=== PATIENT | male | born 1945 | race Caucasian/White ===

== ENCOUNTER → 2018-02-16 08:23 | Outpatient (CLI) | payer MEDICARE, OTHER, SELFPAY ==
[2018-02-16 08:33] LABS: Microscopic, Urine URINE MICROSCOPIC (MICROSCOPIC)
[2018-02-16 08:46] LABS: Appearance,Urine CLEAR (Clear); Bilirubin,Urine Negative (Negative); Blood, Urine Negative (Negative); Color,Urine YELLOW (Yellow); Glucose,Urine (UA) Negative (Negative); Ketones,Urine Negative (Negative); Leukocyte Esterase,Urine Negative (Negative); Nitrate,Urine Negative (Negative); PH,Urine 7.5 (5.0-8.5); Protein,Urine 1+ (Negative); Specific Gravity, Urine 1.015 (1.005-1.030); Urobilinogen,Urine 0.2 EU/dl (0.2)
[2018-02-16 08:54] LABS: Basophils # 0.1 K/mm3 (0-0.2); Eosinophils # 0.2 K/mm3 (0.0-0.4); Eosinophils % 2.9 % (0.1-12.0); Lymphocytes # 2.1 K/mm3 (0.7-4.5); Lymphocytes % 27.3 K/mm3 (10-50); Mean Corpuscular HGB Conc 28.6 g/dL (31.8-35.4); Mean Corpuscular Hemoglobin 19.4 pg (27.0-31.2); Mean Corpuscular Volume 67.8 fl (80-94); Mean Platelet Volume 7.6 fl (7.4-10.4); Monocytes # 0.5 K/mm3 (0.1-1.0); Neutrophils # 4.7 K/mm3 (1.8-7.8); Platelet Count 232 K/mm3 (142-424); Red Cell Distribution Width 18.4 % (11.5-17.5); White Blood Count 7.6 K/mm3 (4.8-10.8)
[2018-02-16 08:56] LABS: Bacteria,Urine Trace /lpf; Squamous Epithelial Cell,Urine Occasional #/hpf (0-5)
[2018-02-16 09:32] LABS: Hematocrit 34.7 % (42.0-52.0); Hemoglobin 9.9 g/dL (14.1-18.0); Red Blood Count 5.13 M/mm3 (4.60-6.20)
[2018-02-16 09:54] LABS: Hemoglobin A1C 8.1 % (0.0-7.0)
[2018-02-16 10:54] LABS: Albumin Level 3.7 gm/dL (3.4-5.0); Blood Urea Nitrogen 23 mg/dL (7-18); Calcium 9.4 mg/dL (8.5-10.1); Carbon Dioxide 25 mmol/L (21.0-32.0); Chloride 105 mmol/L (98-107); Creatinine,Serum 1.32 mg/dL (0.70-1.30); Estimated Glomerular Filt Rate 53 ml/min (>60); GFR (African American) 65 ML/MIN (>60); Glucose 139 mg/dL (74-106); Phosphorous 3.9 mg/dL (2.4-4.9); Sodium 140 mmol/L (136-145); Uric Acid 4.8 mg/dL (2.6-7.2)
[2018-02-16 14:31] LABS: Creatinine,Urine Random 73 mg/dL (20-320); Total Protein,Urine Random 64.4 mg/dL (0.0-11.9)
[2018-02-18 06:21] LABS: Parathyroid Hormone Intact 46 pg/mL (15-65); Vitamin D 25 Hydroxy 31.8 ng/mL (30.0-100.0)
== END ==
PROVIDERS: Visit Provider Internal Medicine Nephrology
DX: E11.9 Type 2 diabetes mellitus without complications (principal); N18.3 Chronic kidney disease, stage 3 (moderate); I10 Essential (primary) hypertension; N27.0 Small kidney, unilateral; Z12.5 Encounter for screening for malignant neoplasm of prostate
CPT/HCPCS: 36415; 80069; 81001; 82570; 82652; 83036; 83970; 84155; 84550; 85025; G0103

== ENCOUNTER → 2019-01-21 09:29 | Outpatient (CLI) | payer MEDICARE, OTHER, SELFPAY ==
--- NOTE | 2019-01-21 09:34 | CT_ITS ---
CT lung screening EXAM: CT LUNG LOW DOSE WO CONTRAST HISTORY: 60 pack year smoking history, asymptomatic for lung cancer ITS.REASON: CURRENT TOBACCO USE ORDERING PHYSICIAN: Trent Buckley MD PATIENT AGE: 74 years COMPARISON: 03/31/2017 TECHNIQUE: The exam was performed on a GE Light Speed [address] scanner using 2.90 mGy CTDI. A low dose helical CT CHEST was performed on a multi-detector scanner. All CT scans at the facility use one or more dose reduction, viz: automated exposure control, ma/kV adjustment per patient size (including targeted exams where dose is matched to indication, i.e. head), or iterative reconstruction technique. The LDCT was performed in a facility that meets the criteria for the screening program. Data regarding this exam was submitted to ACR which is an approved registry. The order for this exam indicates that it came as a result of a lung cancer screening counseling shard decision-making visit that included all the elements required of such a visit including smoking cessation. The radiologist interpreting this exam meets the CMS criteria for the LDCT lung cancer screening program. The exam is reported using the Lung-RADS classification scale and reported to the ACR registry. NOTE: This study was performed for the specific purposes of lung cancer screening and is not an alternative to diagnostic chest CT. RADIATION DOSE: CTDI vol(CT dose Index-volume) = 2.90mG DLP (Dose Length Product) = 110.20 mGcm FINDINGS: A 6 mm fissural nodule in the right minor fissure unchanged. Changes of COPD noted groundglass opacity left lower lobe posterior medially at 5 mm probably unchanged. No new nodules evident. Prior CABG. Extensive coronary artery calcification IMPRESSION: 1. Lung RADS Category: 2, benign 2. Other findings: COPD, coronary artery disease RECOMMENDATIONS: 12 month LDCT follow-up
== END ==
PROVIDERS: PCP Family Medicine; Visit Provider Family Medicine
DX: Z12.2 Encounter for screening for malignant neoplasm of respiratory organs (principal); Z87.891 Personal history of nicotine dependence

== ENCOUNTER → 2019-03-30 11:55 | Outpatient (CLI) | payer MEDICARE, OTHER, SELFPAY ==
--- NOTE | 2019-03-30 11:58 | NM_ITS ---
CARDIOLITE SPECT MYOCARDIAL PERFUSION LEXISCAN, REST AND STRESS: History: Coronary artery disease, bypass surgery, dysrhythmia, hypertension, diabetes, tobacco use, family history and syncope Procedure: Patient received a 0.4 mg of intravenous Lexiscan, resting heart rate was 60 bpm resting blood pressure 143/67, Lexiscan maximum heart rate achieved was 84 bpm which is less than 85% of the maximum predicted heart rate and a blood pressure was 125/56. With Lexiscan patient complained of chest tightness Electrocardiogram: Resting electrocardiogram showed sinus rhythm, with Lexiscan there is [address] segment depression noted from the baseline EKG. The EKG portion of the Lexiscan Myoview is positive for ischemia. Cardiac stress and resting SPECT images: Cardiac stress and resting SPECT images were obtained using technetium 99 Myoview 32.8 mCi stress 10.7 mCi at rest. Gated SPECT further analysis of segmental wall motion and calculation of the ejection fraction also done. Cardiac stress and rest SPECT images show uniform myocardial activity without segmental perfusion abnormality, computer derived ejection fraction is 44% with no regional wall motion abnormality. Right ventricle is moderately enlarged with normal contractility. Conclusion: 1. The EKG portion of the Lexiscan Myoview is positive for ischemia 2. No scintigraphic evidence of reversible ischemia seen, computer derived ejection fraction 44% with no regional wall motion abnormality, right ventricle is moderately enlarged with normal contractility. 3. Abnormal Lexiscan Myoview study due to low ejection fraction of 44%
--- NOTE | 2019-03-30 14:36 | HMH.ITSHM ---
Current Home Medications as stated by this patient Cuong Healy or sales representative door to door. []clopidogrel carvedilol januvia ramipril atorvastatin clonidine amlodipine tamsulosin aspirin
== END ==
PROVIDERS: PCP Family Medicine; Visit Provider Internal Medicine
DX: I25.810 Atherosclerosis of coronary artery bypass graft(s) without angina pectoris (principal); I65.23 Occlusion and stenosis of bilateral carotid arteries; R01.1 Cardiac murmur, unspecified; R09.89 Other specified symptoms and signs involving the circulatory and respiratory systems; R94.31 Abnormal electrocardiogram [ECG] [EKG]; Z95.1 Presence of aortocoronary bypass graft
CPT/HCPCS: 78452; 93017; A9502; J2785

== ENCOUNTER → 2019-04-01 12:35 | Outpatient (CLI) | payer MEDICARE, OTHER, SELFPAY ==
--- NOTE | 2019-04-01 12:36 | CI_ITS ---
Cerebrovascular Exam Indications: Follow-up carotid 433.10. IMPRESSIONS 1. The bilateral vertebral arteries are patent with normal antegrade flow. 2. Study suggests 50-69% stenosis involving the right internal carotid artery and the left internal carotid artery, left upper end of scale. 3. Further testing suggested Labs, prior tests, procedures, and surgery: Right endarterectomy. Labs, prior tests, procedures, and surgery: Right endarterectomy. Carotid duplex study. Complete study and Doppler flow study including spectral analysis, color and bess scale imaging. Height: Height: 172.7cm. Height: 68in. Weight: Weight: 64.4kg. Weight: 141.7lb. Body mass index: BMI: 21.6kg/m^2. Body surface area: BSA: 1.76m^2. Location: Vascular laboratory. Patient status: Outpatient. Tables: Arterial flow: + +--------+--------+ Location V sys V ed + +--------+--------+ Right CCA - proximal 120cm/s 19.6cm/s + +--------+--------+ Right CCA - distal 87.4cm/s 18.2cm/s + +--------+--------+ Right ECA 619cm/s -------- + +--------+--------+ Right ICA - proximal 165cm/s 40.3cm/s + +--------+--------+ Right ICA - mid 165cm/s 35.4cm/s + +--------+--------+ Right ICA - distal 137cm/s 34.2cm/s + +--------+--------+ Right vertebral 93cm/s -------- + +--------+--------+ Left CCA - proximal 156cm/s 25.1cm/s + +--------+--------+ Left CCA - distal 161cm/s 29.9cm/s + +--------+--------+ Left ECA 327cm/s -------- + +--------+--------+ Left ICA - proximal 401cm/s 70.1cm/s + +--------+--------+ Left ICA - mid 132cm/s 28.9cm/s + +--------+--------+ Left ICA - distal 111cm/s 35.2cm/s + +--------+--------+ Left vertebral 60.9cm/s -------- + +--------+--------+ Velocity ratios: + + + + + + Right, V sys Right, V ed Left, V sys Left, V ed + + + + + + Max ICA/dist CCA 1.89 2.21 2.49 2.34 + + + + + + (Report amended ) Electronically signed by: Fran Bennett [id number]
--- NOTE | 2019-04-01 12:36 | CA_ITS ---
CA echo doppler complete PROCEDURE: INDICATIONS FOR THE TEST: Chest pain COPD Heart Murmur+ Tobacco Smoking+ Palpitations Fatigue Syncope Edema Hypertension+Diabetes Mellitus Rheumatic Fever SOB SALCEDO Obesity Hyperlipidemia+ Family History HD Additional History CABG PATIENT INFORMATION HEIGHT: 68 WEIGHT:142 GENDER: Male B/P:150/56 2-D/M-MODE INTERPRETATION: 2-D MEASUREMENTS OBSERVED VALUES IN CMS Right Ventricular Dimension (RVDd) 2.7 Interventricular Septum (Thickness)(IVsd) 1.6 Left Ventricular Internal Dimensions(LVIDd) 5.3 Left Ventricular Posterior Wall (Thickness)(LVPWd) 1.2 Aortic Root 3.4 Aortic Cusp Separation 1.1 Left Atrial Dimensions (LAD) 4.7 2D 1. Technically difficult study because of the patient's factor and poor acoustic windows 2. Left atrium is moderately enlarged, left ventricle is normal size, mild concentric left ventricular hypertrophy, visually estimated ejection fraction 55% with no regional wall motion abnormality. 3. The right atrium and right ventricle are mildly enlarged with normal contractility. 4. The aortic valve is thickened and calcified with severe restriction the leaflet mobility, morphologically there appears to be severe aortic stenosis. 5. The mitral valve has mitral annular calcification, leaflets are minimally thickened. 6. The tricuspid valve is grossly normal. 7. The pulmonic valve is thickened and calcified. 8. No significant pericardial effusion noted. DOPPLER INTERROGATION: 1. The maximum aortic out flow velocity recorded study is 2.7 m/s, resulting in a mean gradient across valve of 15 mmHg, this represents mild aortic stenosis, there is no aortic insufficiency. 2. The mitral inflow velocity within normal range, there is no mitral stenosis, there is mild mitral regurgitation, grade 1 diastolic dysfunction seen with tissue Doppler evidence of raised left atrial pressure. 3. The pulmonic velocity is mildly increased there is no significant pulmonic stenosis, there is mild pulmonic insufficiency. 4. Mild tricuspid regurgitation, tricuspid regurgitation jet velocity is inadequate for calculation of the right ventricular systolic pressure. CONCLUSION: 1. Moderately enlarged left atrium, normal left ventricular size, mild concentric left ventricular hypertrophy, visually estimated ejection fraction 55% with no regional wall motion abnormality, grade 1 diastolic dysfunction seen with tissue Doppler evidence of raised left atrial pressure. 2. Mildly enlarged right ventricle with normal contractility. 3. Thickened and calcified ao
== END ==
PROVIDERS: PCP Family Medicine; Visit Provider Internal Medicine
DX: I25.810 Atherosclerosis of coronary artery bypass graft(s) without angina pectoris (principal); I65.23 Occlusion and stenosis of bilateral carotid arteries; R09.89 Other specified symptoms and signs involving the circulatory and respiratory systems
CPT/HCPCS: 93306; 93880

== ENCOUNTER → 2019-09-05 10:00 | Outpatient (CLI) | payer MEDICARE, OTHER, SELFPAY ==
[2019-09-05 10:44] LABS: Basophils # 0.1 K/mm3 (0-0.2); Basophils % 1.2 % (0.1-2.0); Eosinophils # 0.2 K/mm3 (0.0-0.4); Hemoglobin 12.8 g/dL (14.1-18.0); Lymphocytes % 27.6 % (10-50); Mean Corpuscular HGB Conc 29.1 g/dL (31.8-35.4); Mean Corpuscular Hemoglobin 24.7 pg (27.0-31.2); Mean Corpuscular Volume 84.9 fl (80-94); Monocytes # 0.4 K/mm3 (0.1-1.0); Monocytes % 4.8 % (1.7-9.3); Neutrophils # 4.7 K/mm3 (1.8-7.8); Neutrophils % 64.4 % (37.0-80.0); Platelet Count 196 K/mm3 (142-424); Red Blood Count 5.18 M/mm3 (4.60-6.20); White Blood Count 7.4 K/mm3 (4.8-10.8)
[2019-09-05 10:47] LABS: Red Cell Distribution Width 25.8 % (11.5-17.5)
[2019-09-05 11:34] LABS: Anion Gap 11.4 mEq/L (5-15); Blood Urea Nitrogen 24 mg/dL (7-18); Calcium 8.8 mg/dL (8.5-10.1); Carbon Dioxide 27 mmol/L (21.0-32.0); Chloride 104 mmol/L (98-107); Creatinine,Serum 1.54 mg/dL (0.70-1.30); Estimated Glomerular Filt Rate 45 ml/min (>60); GFR (African American) 54 ML/MIN (>60); Glucose 218 mg/dL (74-106); Potassium 5.4 mmoL/L (3.5-5.1); Sodium 137 mmol/L (136-145)
== END ==
PROVIDERS: Visit Provider Surgery
DX: D64.9 Anemia, unspecified (principal); F17.200 Nicotine dependence, unspecified, uncomplicated
CPT/HCPCS: 36415; 80048; 85025

== ENCOUNTER → 2020-02-01 10:08 | Outpatient (CLI) | payer MEDICARE, OTHER, SELFPAY ==
--- NOTE | 2020-02-01 10:11 | CT_ITS ---
PROCEDURE: CT LUNG SCREENING CLINICAL INDICATION: CURRENT TOBACCO USE One hundred pack-year smoking history asymptomatic for lung cancer COMPARISON: LUNGSCREEN CT lung screening from 01/21/2019 TECHNIQUE: The exam was performed on a GE Light Speed [address] scanner using 2.90 mGy CTDI. A low dose helical CT CHEST was performed on a multi-detector scanner. All CT scans at the facility use one or more dose reduction, viz: automated exposure control, ma/kV adjustment per patient size (including targeted exams where dose is matched to indication, i.e. head), or iterative reconstruction technique. The LDCT was performed in a facility that meets the criteria for the screening program. Data regarding this exam was submitted to ACR which is an approved registry. The order for this exam indicates that it came as a result of a lung cancer screening counseling shard decision-making visit that included all the elements required of such a visit including smoking cessation. The radiologist interpreting this exam meets the CMS criteria for the LDCT lung cancer screening program. The exam is reported using the Lung-RADS classification scale and reported to the ACR registry. NOTE: This study was performed for the specific purposes of lung cancer screening and is not an alternative to diagnostic chest CT. RADIATION DOSE: CTDI vol(CT dose Index-volume) = 2.90mG DLP (Dose Length Product) = 106.29 mGcm Lung Rads Category: FINDINGS: Prior CABG. Extensive coronary artery calcification. There are scattered small nodes in the mediastinum not significantly changed. Mild cardiomegaly. Changes of COPD. No suspicious nodules evident. No change right middle lobe fissural nodule OTHER FINDINGS: No other pertinent findings evident. IMPRESSION: Lung rads category 1, negative Recommend continued annual screening LD CT Dictated by: Addi Stauffer MD 02/05/2020 10:13 Electronically signed by Addi Stauffer MD in [place] 02/05/2020 10:13
== END ==
PROVIDERS: PCP Family Medicine; Visit Provider Family Medicine
DX: Z87.891 Personal history of nicotine dependence (principal); Z12.2 Encounter for screening for malignant neoplasm of respiratory organs

== ENCOUNTER → 2021-04-29 14:10 | Outpatient (CLI) | payer MEDICARE, OTHER, SELFPAY ==
--- NOTE | 2021-04-29 14:12 | CA_ITS ---
APPROVED REPORT EXAM: Comprehensive 2D, Doppler, and color-flow Echocardiogram Cnc Supervisor: SHARDA Borden, RVS Ht: 5 ft 7 in Wt: 137lbs BSA: 1.72 BP: 127/53 mmHg Indications: Aortic stenosis, Pre-op clearance skin CA, CAD, ABN EKG, HTN, HLD, DM, smoker 2D Dimensions IVSd 1.26 cm M: 0.6-1.2 LVEF (Visual) 59.20 % PWd 1.09 cm M: 0.6 - 1.2 LA Volume 92.70 mL LVDd 4.51 cm M: 4.2 - 5.9 LA Volume Index 53.89 mL/m2 (M/F) 16-34 LVDs 3.10 cm M: 2.5 - 4.0 Aortic Root 3.11 cm M: 3.1 - 3.7 Left Atrium 4.73 cm M: 3.0 - 4.0 LVOT 1.84 cm (M/F) 1.5-2.5 M-Mode Dimensions RVDd 2.33 cm (0.9-2.6) LA Diam 3.87 cm (1.9-4.0) LVDd 5.57 cm (3.5-5.7) Ao Diam 3.51 cm (2.0-3.7) LVDs 3.47 cm (3.5-5.7) IVSd 0.96 cm (0.6-1.1) PWd 1.14 cm (0.6-1.1) EF (Teich) 67.20% EPSs 0.52 cm FS 37.70% EDV (Teich) 151.80 mL TAPSE 1.91 (<1.7) ESV (Teich) 49.80 mL LV Diastology E Decel Time 240.00 (160-240 msec) E/A Ratio 1.21 MED E' 6.40 (< 7 cm/sec) MED A' 11.80 cm/s E'/MED E' Ratio 12.95 (>14) LAT E' 9.40 (<10 cm/sec) LAT A' 10.90 cm/s E/LAT E' Ratio 8.82 (>14) Aortic Valve LVOT Max 89.00 (70-110 cm/s) LVOT VTI 24.52 cm AoV Peak Maicol. 359.00 (50-130 cm/s) AI PHT 468.00 ms AO Peak GR. 51.80 mmHg AO Mean GR. 30.40 (<5 mmHg) AO VTI 93.04 (18-25 cm) ERO 0.82 cm2 PATRICIA (VTI) 0.70 (2.5-4.5 cm2) Mitral Valve MV A Velocity 69.00 (40-130 cm/s) E/A Ratio 1.21 MV Decel. Time 240.00 (160-240 ms) Pulmonary Valve PV Peak Velocity 106.00 (50-150 cm/s) Tricuspid Valve TR P. Velocity 147.00 cm/s RAP Estimate 10.00 mmHg RVSP 18.60 mmHg Left Ventricle Left atrium is mildly enlarged, left ventricle is normal size, mild concentric left ventricular hypertrophy, visually estimated ejection fraction 55% with no regional wall motion abnormality. Diastolic parameters are inconclusive. Right Ventricle Right atrium and right ventricle are normal size and contractility. Aortic Valve Aortic valve is thickened and calcified with severe restriction in the leaflet mobility, mean gradient across valve is 31 mmHg, valve area is 0.7 cm??? represents severe aortic stenosis, there is mild aortic insufficiency. Mitral Valve Mitral valve leaflets are minimally thickened, there is no mitral stenosis, there is mild mitral regurgitation. Tricuspid Valve Tricuspid valve is grossly normal, there is mild tricuspid regurgitation, tricuspid regurgitation jet velocity is inadequate for calculation of the right ventricular systolic pressure. Pulmonic Valve Pulmonic valve is poorly visualized. Great Vessels Aortic root is normal size. Pericardium No significant pericardial effusion noted. Conclusion 1. Mildly enlarged left atrium, normal left ventricular size, mild concentric left ventricular hypertrophy, visually estimated ejection fraction 55% with no regional wall motion abnormality, diastolic parameters are inconclusive in 2. Thickened and calcified aortic valve with mean gradient across valve of 31 mmHg, valve area is 0.7 cm, represents severe aortic stenosis, there is mild aortic insufficiency. 3. Mild mitral and tricuspid regurgitation. 4. No significant pericardial effusion noted. Electronically signed by : Joseph Isaac, 04/29/2021 22:13:21
--- NOTE | 2021-04-29 14:12 | CA_ITS ---
APPROVED REPORT [employer]: THOMAS Laterality: Bilateral Study Quality: Good Indications: KEILA, Surgical Clearance Risk Factors Hypertension: Hyperlipidemia Diabetes CAD, Smoking Hx of right endarterectomy 20+ years ago Doppler Spectral Velocity Analysis ECA (R) 285.10/11.60 cm/s ECA (L) 220.60/0.00 cm/s dICA (R) 171.70/27.00 cm/s dICA (L) 106.20/25.70 cm/s Augustus (R) 164.60/27.00 cm/s Augustus (L) 104.50/20.60 cm/s pICA (R) 190.50/34.10 cm/s pICA (L) 412.50/71.70 cm/s dCCA (R) 74.50/13.50 cm/s dCCA (L) 120.80/12.80 cm/s pCCA (R) 120.80/13.90 cm/s pCCA (L) 169.90/16.70 cm/s Vert (R) 132.90/16.50 cm/s Vert (L) 96.50/14.20 cm/s ICA/CCA 2.56 ICA/CCA 3.41 Findings Duplex evaluation demonstrates stenosis of the right proximal internal carotid artery in the range of 50-69%. Duplex evaluation demonstrates stenosis of the left proximal internal carotid artery in the range of 50-69%, upper end of scale. Duplex evaluation demonstrates antegrade flow of the bilateral vertebral arteries. Conclusion Duplex evaluation demonstrates stenosis of the right proximal internal carotid artery in the range of 50-69%. Duplex evaluation demonstrates stenosis of the left proximal internal carotid artery in the range of 50-69%, upper end of scale. Duplex evaluation demonstrates antegrade flow of the bilateral vertebral arteries. Electronically signed by : Estephanie Andrade, 04/29/2021 16:52:25
== END ==
PROVIDERS: PCP Family Medicine; Visit Provider Nurse Practitioner Family
DX: I35.0 Nonrheumatic aortic (valve) stenosis (principal); E11.9 Type 2 diabetes mellitus without complications; E78.2 Mixed hyperlipidemia; F17.200 Nicotine dependence, unspecified, uncomplicated; I10 Essential (primary) hypertension; I25.10 Atherosclerotic heart disease of native coronary artery without angina pectoris; I65.23 Occlusion and stenosis of bilateral carotid arteries; R01.1 Cardiac murmur, unspecified; R09.89 Other specified symptoms and signs involving the circulatory and respiratory systems; R94.31 Abnormal electrocardiogram [ECG] [EKG]; Z01.818 Encounter for other preprocedural examination; Z95.1 Presence of aortocoronary bypass graft; Z79.84 Long term (current) use of oral hypoglycemic drugs
CPT/HCPCS: 93306; 93880

== ENCOUNTER → 2021-05-14 11:30 | Outpatient (CLI) | payer MEDICARE, OTHER, SELFPAY ==
[2021-05-14 12:28] LABS: Basophils # 0.2 K/mm3 (0-0.2); Basophils % 2.6 % (0.1-2.0); Eosinophils # 0.2 K/mm3 (0.0-0.4); Eosinophils % 2.9 % (0.1-12.0); Hematocrit 39.1 % (42.0-52.0); Hemoglobin 12.1 g/dL (14.1-18.0); Lymphocytes % 25.3 % (10-50); Mean Corpuscular Hemoglobin 25.7 pg (27.0-31.2); Mean Corpuscular Volume 82.7 fl (80-94); Mean Platelet Volume 13.8 fl (7.4-10.4); Monocytes # 0.4 K/mm3 (0.1-1.0); Monocytes % 4.9 % (1.7-9.3); Neutrophils % 64.3 % (37.0-80.0); Platelet Count 182 K/mm3 (142-424); Red Blood Count 4.72 M/mm3 (4.60-6.20); Red Cell Distribution Width 19.1 % (11.5-17.5); White Blood Count 7.8 K/mm3 (4.8-10.8)
[2021-05-14 13:20] LABS: Chloride 104 mmol/L (98-107); Sodium 139 mmol/L (136-145)
[2021-05-14 13:21] LABS: Potassium 5.5 mmoL/L (3.5-5.1)
[2021-05-14 13:24] LABS: Anion Gap 16.5 mEq/L (5-15); Blood Urea Nitrogen 33 mg/dl (9-20); Calcium 8.9 mg/dl (8.4-10.2); Carbon Dioxide 24 mmol/L (22.0-30.0); Estimated Glomerular Filt Rate 49 ml/min (>60); GFR (African American) 60 ML/MIN (>60); Glucose 254 mg/dl (74-100)
== END ==
PROVIDERS: Visit Provider Otolaryngology
DX: Z01.812 Encounter for preprocedural laboratory examination (principal); Z20.822 Contact with and (suspected) exposure to COVID-19
CPT/HCPCS: 36415; 80048; 85025; U0003

== ENCOUNTER 2021-05-16 05:52 | Day surgery (SDC) | payer MEDICARE, OTHER, SELFPAY ==
[2021-05-13 17:03] VITALS: BMI 21.2
[2021-05-16 06:22] VITALS: BP 167/56; PULSE 57; RESP 18; TEMP 36.6; O2SAT 99
[2021-05-16 06:47] LABS: POC Glucose,Bedside 156 (70-110)
--- NOTE | 2021-05-16 06:59 | P.PN_ITS ---
[facility] Anesthesia Checklist - Patient Identification Patient Identification: Arm Band - Structural Data Admitted From: Home Planned Operative Procedure/s: Excision neoplasm Consent for Planned Operative Procedure(s) Verified: Yes - NPO Status Verified Time NPO: 00:00 - Additional verifications Anesthesia Reactions: No Hx Blood Transfusions: No Blood Transfusion Reaction: No - Airway Assessment C-Spine Mobility Assessed: Yes TMJ Mobility Assessed: Yes Dentition: Edentulous - Neurological Assessment Level of Consciousness: Awake Hx Seizures: No Numbness or tingling in extremities: Yes - Anesthesia Plan Anesthesia Risk discussed: Yes Anesthesia Plan: Verified ASA Class: IV Anesthesia Type: Local & MAC [facility] History I have reviewed the patient's past medical history: Yes Medical History: Reports:: Congestive Heart Failure, Congenital Heart Disease, Diabetes Mellitus Type 2, Hyperlipidemia, Hypertension, Myocardial Infarction, Renal Disease, Renal Insufficiency, Valvular Heart Disease Denies:: Cancer, Diabetes Mellitus Type 1, Internal Pacemaker, MRSA, Seizures *Have you ever received a pneumonia vaccine?: No *Have you received a flu vaccine this season?: Yes Other Medical History: Denies: Blood Transfusion Reaction Anesthesia experience/problems:: None Other Surgeries: Yes: Cancer Surgery, Cardiac Catheterization, Cholecystectomy, Colonoscopy, Open Heart Surgery, Other. No: Pacemaker Amputation: No Fractures: No - *Social History Last grade of school completed: 9th or 10th Smoking Status: Current every day smoker Tobacco Type: cigarettes # Packs/Day (cigarettes): 1 Alcohol Intake: former Substance Use Type: denies use *Occupational Status:: retired Housing: house Household Members: spouse *Travel in the last 8 weeks: None Family Hx:: No significant family history
--- NOTE | 2021-05-16 08:27 | P.OP_ITS ---
Date of procedure: 05/16/21 Pre-op Diagnosis:: 1. 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 Neoplasm left lower leg 1.8 cm Post-op Diagnosis:: same Procedure performed:: 1. Excision of neoplasm nose 3.8 cm with tissue rearrangement Z-plasty repair 2. Excision of neoplasm left lower leg 1.8 cm with tissue rearrangement Z- plasty repair Surgeon:: Jovani Gonzalez MD WASH OIL PUMP OPERATOR:: Percy Ortiz Anesthesia: MAC Estimated blood loss (mL): 8 Operative findings:: same Operative note:: The patient had a MAC anesthetic the eyes were protected with Steri-Strips and the face was prepped with chlorhexidine. The lesion on the nose measured 3.8 cm, 2 cc of 2% lidocaine with epi were injected into the perilesional area the lesion was marked out and the sebas out was incised and the lesion was excised. Bleeding was stopped with bipolar cautery. Lateral and superior incisions were made and a tissue rearrangement Z-plasty repair was done with interrupted 2-0 nylon sutures Surgicel snow was placed in the defect before the closure the Dermabond dressing was applied. On his left lower leg measured 1.8cm then 1.5 cc of 2% lidocaine with epi were injected into the perilesional area after prepping and draping. The lesion was marked out and the sebas out was incised and the lesion was excised and submitted. Superior and inferior incisions were made and a tissue rearrangement geometric plastic repair was done with 2-0 nylon sutures,a Dermabond dressing was applied as well as a Band-Aid dressing and the patient was sent to recovery in good general condition. Condition: stable Disposition: PACU Complications:: none
[2021-05-16 08:30] VITALS: BP 143/59; PULSE 60; RESP 16; TEMP 36.2; O2SAT 99
[2021-05-16 08:45] VITALS: BP 122/52; PULSE 55; RESP 16; O2SAT 98
--- NOTE | 2021-05-16 08:49 | US_ITS ---
PROCEDURE: US ABD. AORTA SCREENING CLINICAL INDICATION: abdominal bruit COMPARISON: CT ABDPELW CT ABD PELVIS W/ CONTRAST from 06/11/2016 FINDINGS: The abdominal aorta has normal caliber as do the proximal common iliacs. Measurements of the abdominal aorta are less than 2 cm. There is atherosclerotic plaque noted IMPRESSION: No evidence of aortic aneurysm. Dictated by: Addi Stauffer MD 05/16/2021 09:33 Addi Stauffer MD in [place] 05/16/2021 09:33
[2021-05-16 09:00] VITALS: BP 129/95; PULSE 59; RESP 16; O2SAT 98
--- NOTE | 2021-05-16 09:03 | SUR.PHASEII ---
[id number] ABD sound reported to cardiology ( Kimberli PARISH) order for u/s ABD aorta protocol, Rad. to call report. L.King SERVIN
[2021-05-16 09:30] VITALS: BP 134/82; PULSE 58; RESP 16; O2SAT 98
[2021-05-16 10:41] LABS: POC Glucose,Bedside 144 (70-110)
== END 2021-05-16 09:30 | disposition home or self-care (01) ==
LOC: OR 05:54
PROVIDERS: PCP Family Medicine; Visit Provider Otolaryngology
DX: B07.9 Viral wart, unspecified (principal); C44.311 Basal cell carcinoma of skin of nose; E11.9 Type 2 diabetes mellitus without complications; E78.5 Hyperlipidemia, unspecified; I11.0 Hypertensive heart disease with heart failure; I25.2 Old myocardial infarction; N28.9 Disorder of kidney and ureter, unspecified; I50.9 Heart failure, unspecified; Z90.49 Acquired absence of other specified parts of digestive tract; Z72.0 Tobacco use; Z79.82 Long term (current) use of aspirin; Z79.899 Other long term (current) drug therapy
CPT/HCPCS: 14020; 14060; 76705; 82962; 88305; 96374

== ENCOUNTER → 2021-08-14 07:34 | Outpatient (CLI) | payer MEDICARE, OTHER, SELFPAY ==
[2021-08-14 07:48] LABS: Coronavirus 19, PCR Not Detected (NotDetected); Influenza A, PCR Not Detected (NotDetected); Influenza B, PCR Not Detected (NotDetected)
[2021-08-14 09:07] LABS: Basophils # 0.1 K/mm3 (0-0.2); Basophils % 1.2 % (0.1-2.0); Eosinophils # 0.3 K/mm3 (0.0-0.4); Eosinophils % 2.9 % (0.1-12.0); Hematocrit 37.1 % (42.0-52.0); Lymphocytes % 20.3 % (10-50); Mean Corpuscular HGB Conc 29.8 g/dL (31.8-35.4); Mean Corpuscular Volume 83.8 fl (80-94); Mean Platelet Volume 7.8 fl (7.4-10.4); Monocytes # 0.6 K/mm3 (0.1-1.0); Monocytes % 5.9 % (1.7-9.3); Neutrophils # 6.7 K/mm3 (1.8-7.8); Neutrophils % 69.7 % (37.0-80.0); Platelet Count 190 K/mm3 (142-424); Red Blood Count 4.42 M/mm3 (4.60-6.20); Red Cell Distribution Width 15.1 % (11.5-17.5); White Blood Count 9.6 K/mm3 (4.8-10.8)
[2021-08-14 10:15] LABS: Chloride 104 mmol/L (98-107); Potassium 5.1 mmoL/L (3.5-5.1); Sodium 137 mmol/L (136-145)
[2021-08-14 10:18] LABS: Anion Gap 14.1 mEq/L (5-15); Blood Urea Nitrogen 26 mg/dl (9-20); Calcium 9.1 mg/dl (8.4-10.2); Carbon Dioxide 24 mmol/L (22.0-30.0); Estimated Glomerular Filt Rate 59 ml/min (>60); GFR (African American) 71 ML/MIN (>60); Glucose 179 mg/dl (74-100)
== END ==
PROVIDERS: Visit Provider Otolaryngology
DX: Z01.812 Encounter for preprocedural laboratory examination (principal); Z11.52 Encounter for screening for COVID-19; C44.311 Basal cell carcinoma of skin of nose
CPT/HCPCS: 36415; 80048; 85025; C9803; U0003; U0005

== ENCOUNTER 2021-08-15 07:57 | Day surgery (SDC) | payer MEDICARE, OTHER, SELFPAY ==
[2021-08-15 08:11] VITALS: BMI 20.5
--- NOTE | 2021-08-15 08:15 | ECG_ITS ---
APPROVED REPORT Exam: Resting ECG HR:57 bpm ECG Measurements Heart Rate 57 AXES VA 178 P 4 QRSd 100 QRS -34 QT 398 T -5 QTc 387 Conclusion Sinus bradycardia Left axis deviation Poor r wave progression - unchanged from prior Abnormal ECG Electronically signed by : Tirso Ny MD 08/16/2021 22:39:41
[2021-08-15 08:20] VITALS: BP 140/57; PULSE 56; RESP 18; TEMP 36.6; O2SAT 99
--- NOTE | 2021-08-15 08:55 | HMH.ANESCL ---
[facility] Anesthesia Checklist - Patient Identification Patient Identification: Arm Band - Structural Data Admitted From: Home Planned Operative Procedure/s: excision nose lesion Consent for Planned Operative Procedure(s) Verified: Yes Verified Documents: Surgical Consent, History and Physical - NPO Status Verified Time NPO: 00:00 - Additional verifications Anesthesia Reactions: No Hx Blood Transfusions: No Blood Transfusion Reaction: No - Airway Assessment C-Spine Mobility Assessed: Yes (mp2) TMJ Mobility Assessed: Yes Dentition: Good Dentition - Neurological Assessment Level of Consciousness: Awake, Alert - Anesthesia Plan Anesthesia Risk discussed: Yes Anesthesia Plan: Verified ASA Class: III Anesthesia Type: MAC [facility] History I have reviewed the patient's past medical history: Yes Medical History: Reports:: Congestive Heart Failure, Congenital Heart Disease, Diabetes Mellitus Type 2, Hyperlipidemia, Hypertension, Myocardial Infarction, Renal Disease, Renal Insufficiency, Valvular Heart Disease Denies:: Cancer, Diabetes Mellitus Type 1, Internal Pacemaker, MRSA, Seizures *Have you ever received a pneumonia vaccine?: Yes *Have you received a flu vaccine this season?: Yes Other Medical History: Denies: Blood Transfusion Reaction Anesthesia experience/problems:: nac Other Surgeries: Yes: Cancer Surgery (skin ca removed on nose), Cardiac Catheterization, Cardiac Surgery, Cholecystectomy, Colonoscopy, Open Heart Surgery, Other. No: Pacemaker Amputation: No Fractures: No - *Social History Last grade of school completed: 7th or 8th Smoking Status: Current every day smoker Tobacco Type: cigarettes # Packs/Day (cigarettes): 1 Alcohol Intake: former Substance Use Type: marijuana *Occupational Status:: retired Housing: house Household Members: spouse *Travel in the last 8 weeks: None Family Hx:: Cancer
[2021-08-15 09:20] VITALS: BP 122/50; PULSE 56; RESP 18; TEMP 36.2; O2SAT 98
[2021-08-15 09:35] VITALS: BP 99/55; PULSE 60; RESP 18; O2SAT 97
[2021-08-15 09:47] VITALS: BP 114/55; PULSE 58; RESP 18; O2SAT 97
--- NOTE | 2021-08-15 09:57 | HMH.OPNOTE ---
Date of procedure: 08/15/21 Pre-op Diagnosis:: 1. 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 Excision of depressed scar with tissue rearrangement repair Surgeon:: Jovani Gonzalez MD MEDICAL PHYSIOLOGIST:: Percy Ortiz Anesthesia: MAC Estimated blood loss (mL): 5 Operative findings:: same Operative note:: The face was prepped and draped, the eyes were protected with Steri-Strips. The perilesional area on the nasal dorsum was infiltrated with 3 cc of 2% lidocaine containing epinephrine. The depressed scarred area was marked out the marked out, it measured 3 cm, the markup was incised and the depressed scar was excised to the level of the lower lateral cartilages. Bleeding was 5 cc and stopped with suction cautery and a tissue rearrangement was done after anterior and inferior incisions were made and a Z-plasty repair was done with 2-0 chromic on the subcutaneous layer and 2-0 nylon on the cutaneous layer. A Dermabond dressing was applied and the patient was sent to recovery in good general condition. Condition: stable Disposition: PACU Complications:: none
[2022-07-10 10:54] LABS: POC Glucose,Bedside 179 (70-110)
== END 2021-08-15 09:50 | disposition home or self-care (01) ==
LOC: OR 07:59
PROVIDERS: PCP Family Medicine; Visit Provider Otolaryngology
DX: C44.311 Basal cell carcinoma of skin of nose (principal); I50.9 Heart failure, unspecified; E11.9 Type 2 diabetes mellitus without complications; E78.5 Hyperlipidemia, unspecified; I10 Essential (primary) hypertension; I25.2 Old myocardial infarction; N28.9 Disorder of kidney and ureter, unspecified; Z85.828 Personal history of other malignant neoplasm of skin; Z90.49 Acquired absence of other specified parts of digestive tract; Z72.0 Tobacco use; Z80.9 Family history of malignant neoplasm, unspecified; F12.90 Cannabis use, unspecified, uncomplicated
CPT/HCPCS: 14060; 82962; 88305; 93005; 96374

== ENCOUNTER → 2021-08-19 07:56 | Outpatient (CLI) | payer MEDICARE, OTHER, SELFPAY | PROVIDERS: Visit Provider Ophthalmology | DX: Z01.812 Encounter for preprocedural laboratory examination (principal); Z11.52 Encounter for screening for COVID-19 | CPT/HCPCS: C9803; U0003; U0005 ==

== ENCOUNTER 2021-08-20 08:16 | Day surgery (SDC) | payer MEDICARE, OTHER, SELFPAY ==
[2021-08-16 11:49] VITALS: BMI 20.5
[2021-08-20 08:34] VITALS: BP 123/62; PULSE 63; RESP 18; TEMP 36.4; O2SAT 99
[2021-08-20 08:53] LABS: POC Glucose,Bedside 204 (70-110)
[2021-08-20 09:28] VITALS: BP 142/60; PULSE 64; RESP 18; TEMP 36.3; O2SAT 98
[2021-08-20 09:32] VITALS: BP 142/60; PULSE 64; RESP 18; TEMP 36.3; O2SAT 98
== END 2021-08-20 09:32 | disposition home or self-care (01) ==
LOC: OUTP 08:17
PROVIDERS: PCP Family Medicine; Visit Provider Ophthalmology
PROC: (CPT 66821; principal; 2021-08-20 09:30)
DX: H26.491 Other secondary cataract, right eye (principal); Z96.1 Presence of intraocular lens; I25.10 Atherosclerotic heart disease of native coronary artery without angina pectoris; E11.9 Type 2 diabetes mellitus without complications; E78.5 Hyperlipidemia, unspecified; Z95.1 Presence of aortocoronary bypass graft; I10 Essential (primary) hypertension; Z79.82 Long term (current) use of aspirin; Z79.899 Other long term (current) drug therapy
CPT/HCPCS: 66821; 82962

== ENCOUNTER → 2021-10-25 07:47 | Outpatient (CLI) | payer MEDICARE, OTHER, SELFPAY ==
--- NOTE | 2021-10-25 07:49 | CA_ITS ---
FINAL REPORT TECHNIQUE: Color Doppler, duplex Doppler and bess scale sonography of the bilateral neck arterial vasculature was performed. Velocities were measured in the carotid arteries. Stenosis evaluation based on the validated velocity criteria. CLINICAL HISTORY: KEILA,SMOKER,HTN,DM,HLD FINDINGS: The peak systolic velocity of the right common carotid artery is 111 cm/s. The peak systolic velocity of the right internal carotid artery is 178 cm/s and end diastolic velocity 19 cm/s. A moderate amount of plaque is present. The right external carotid artery is patent. The right vertebral artery is patent with antegrade flow. The peak systolic velocity of the left common carotid artery is 141 cm/s. The peak systolic velocity of the left internal carotid artery is 392 cm/s and end diastolic velocity 51 cm/s. A moderate to large amount of plaque is present. The left external carotid artery is patent.The left vertebral artery is patent with antegrade flow. IMPRESSION: There is 50-69% stenosis on the right. There is greater than 70% stenosis on the left. Recommend CTA for further evaluation. Reviewed, Interpreted and Dictated by Kalia Zarate III, MD Transcribed by Tessa Powell Authenticated by Kalia Zarate III, MD on 10/25/2021 09:19:[address] [facility]
== END ==
PROVIDERS: PCP Family Medicine; Visit Provider Nurse Practitioner Family
DX: I65.23 Occlusion and stenosis of bilateral carotid arteries (principal)
CPT/HCPCS: 93880

== ENCOUNTER → 2022-04-29 09:23 | Outpatient (CLI) | payer MEDICARE, OTHER, SELFPAY ==
--- NOTE | 2022-04-29 09:24 | CA_ITS ---
FINAL REPORT TECHNIQUE: Color Doppler, duplex Doppler and bess scale sonography of the bilateral neck arterial vasculature was performed. Velocities were measured in the carotid arteries. Stenosis evaluation based on the validated velocity criteria. CLINICAL HISTORY: KEILA,HX RT ENDART,SMOKER,HTN FINDINGS: The peak systolic velocity of the right common carotid artery is 82 cm/s. The peak systolic velocity of the right internal carotid artery is 209 cm/s and end diastolic velocity 24 cm/s. The ICA/CCA ratio is 3.1. A mild amount of plaque is present. The right external carotid artery is patent. The right vertebral artery is patent with antegrade flow. The peak systolic velocity of the left common carotid artery is 173 cm/s. The peak systolic velocity of the left internal carotid artery is 397 cm/s and end diastolic velocity 47 cm/s. The ICA/CCA ratio is 3.4. A moderate to severe amount of plaque is present. The left external carotid artery is patent.The left vertebral artery is patent with antegrade flow. IMPRESSION: 50-69% right carotid stenosis. 70-99% left carotid stenosis. Bilateral patent vertebral arteries with antegrade flow. Recommend CTA or catheter angiogram. Reviewed, Interpreted and Dictated by Kalia Zarate III, MD Transcribed by Marilee Nguyen Authenticated and [facility]
--- NOTE | 2022-04-29 09:57 | CT_ITS ---
FINAL REPORT CLINICAL HISTORY: claudication, instability walking FINDINGS: Thin section axial CT images of the abdomen, pelvis and lower extremities were obtained with contrast. Multiplanar reformatted images were also obtained and reviewed. ABDOMEN AND PELVIS: There is diffuse vascular calcification. There is no abdominal aortic aneurysm or dissection. There is small caliber distal abdominal aorta measuring 6 mm. There is moderate stenosis at the origin of the celiac axis. There is mild stenosis involving the proximal superior mesenteric artery. There is mild stenosis at the origin of the right renal artery. The left renal artery is not seen, likely occluded. The inferior mesenteric artery is patent. There is mild stenosis of the bilateral common and external iliac arteries. The internal iliac arteries are patent. RIGHT LOWER EXTREMITY: There is multifocal moderate and severe stenoses involving the superficial femoral arteries. There is multi focal stenoses of the anterior tibial and tibioperoneal trunk. The right deep femoral artery is patent. The right popliteal artery is patent. There is three-vessel runoff to the distal lower leg. LEFT LOWER EXTREMITY: There is multifocal moderate stenoses of the superficial femoral arteries. The left deep femoral artery is patent. The left popliteal artery is patent. There is three-vessel runoff to the distal lower leg. IMPRESSION: Small caliber distal abdominal aorta. Mild stenosis involving the bilateral common and external iliac arteries. Multifocal stenoses involving the bilateral superficial femoral arteries, right worse than left. Reviewed, Interpreted and Dictated by Kalia Zarate III, MD Transcribed by Tessa Powell Authenticated and . [facility]
[2022-04-29 10:30] LABS: Blood Urea Nitrogen 27 mg/dl (9-20); Estimated Glomerular Filt Rate 46 ml/min (>60); GFR (African American) 55 ML/MIN (>60)
== END ==
PROVIDERS: PCP Family Medicine; Visit Provider Nurse Practitioner Family
DX: E11.9 Type 2 diabetes mellitus without complications (principal); E78.5 Hyperlipidemia, unspecified; F17.200 Nicotine dependence, unspecified, uncomplicated; I10 Essential (primary) hypertension; I25.10 Atherosclerotic heart disease of native coronary artery without angina pectoris; I35.0 Nonrheumatic aortic (valve) stenosis; I73.9 Peripheral vascular disease, unspecified; R01.1 Cardiac murmur, unspecified; R06.00 Dyspnea, unspecified; R09.89 Other specified symptoms and signs involving the circulatory and respiratory systems; R42 Dizziness and giddiness; R93.1 Abnormal findings on diagnostic imaging of heart and coronary circulation; R94.31 Abnormal electrocardiogram [ECG] [EKG]; Z95.1 Presence of aortocoronary bypass graft; I65.23 Occlusion and stenosis of bilateral carotid arteries
CPT/HCPCS: 36415; 75635; 82565; 84520; 93880; Q9967

== ENCOUNTER → 2022-05-08 08:12 | Outpatient (CLI) | payer MEDICARE, OTHER, SELFPAY ==
[2022-05-08 08:15] LABS: Coronavirus 19, PCR Not Detected (NotDetected); Influenza A, PCR Not Detected (NotDetected); Influenza B, PCR Not Detected (NotDetected)
[2022-05-08 09:17] LABS: Basophils # 0.1 K/mm3 (0-0.2); Basophils % 1.5 % (0.1-2.0); Eosinophils # 0.2 K/mm3 (0.0-0.4); Eosinophils % 2.4 % (0.1-12.0); Hematocrit 32.8 % (42.0-52.0); Hemoglobin 9.5 g/dL (14.1-18.0); Lymphocytes # 1.5 K/mm3 (0.7-4.5); Lymphocytes % 24.1 % (10-50); Mean Corpuscular Hemoglobin 20.9 pg (27.0-31.2); Mean Corpuscular Volume 71.9 fl (80-94); Mean Platelet Volume 7.3 fl (7.4-10.4); Monocytes # 0.4 K/mm3 (0.1-1.0); Monocytes % 6.1 % (1.7-9.3); Neutrophils # 4.2 K/mm3 (1.8-7.8); Platelet Count 221 K/mm3 (142-424); Red Blood Count 4.56 M/mm3 (4.60-6.20); Red Cell Distribution Width 18.8 % (11.5-17.5); White Blood Count 6.4 K/mm3 (4.8-10.8)
[2022-05-08 10:37] LABS: Anion Gap 13.6 mEq/L (5-15); Blood Urea Nitrogen 25 mg/dl (9-20); Calcium 9.2 mg/dl (8.4-10.2); Carbon Dioxide 25 mmol/L (22.0-30.0); Chloride 105 mmol/L (98-107); Estimated Glomerular Filt Rate 46 ml/min (>60); GFR (African American) 55 ML/MIN (>60); Glucose 181 mg/dl (74-100); Potassium 5.6 mmoL/L (3.5-5.1); Sodium 138 mmol/L (136-145)
== END ==
PROVIDERS: PCP Family Medicine; Visit Provider Nurse Practitioner
DX: E11.9 Type 2 diabetes mellitus without complications (principal); E78.2 Mixed hyperlipidemia; F17.200 Nicotine dependence, unspecified, uncomplicated; I10 Essential (primary) hypertension; I25.10 Atherosclerotic heart disease of native coronary artery without angina pectoris; I35.0 Nonrheumatic aortic (valve) stenosis; I65.23 Occlusion and stenosis of bilateral carotid arteries; I73.9 Peripheral vascular disease, unspecified; R01.1 Cardiac murmur, unspecified; R06.00 Dyspnea, unspecified; R09.89 Other specified symptoms and signs involving the circulatory and respiratory systems; R42 Dizziness and giddiness; R93.1 Abnormal findings on diagnostic imaging of heart and coronary circulation; R94.31 Abnormal electrocardiogram [ECG] [EKG]; Z95.1 Presence of aortocoronary bypass graft; Z01.812 Encounter for preprocedural laboratory examination; Z20.822 Contact with and (suspected) exposure to COVID-19; Z79.84 Long term (current) use of oral hypoglycemic drugs
CPT/HCPCS: 36415; 80048; 85025; C9803; U0003; U0005

== ENCOUNTER → 2022-05-09 08:15 | Day surgery (SDC) | payer MEDICARE, OTHER, SELFPAY ==
[2022-05-09] VITALS (30 sets, daily range): BP systolic 111–159; BP diastolic 40–69; PULSE 50–67; RESP 18; TEMP 36.3–36.9; O2SAT 96–99; BMI 20.7; BMI 20.5
--- NOTE | 2022-05-09 07:06 | IR_ITS ---
APPROVED REPORT Patient Location: Outpatient PROCEDURES Left femoral artery retrograde angiogram Lithotripsy to the left common femoral artery and left external iliac artery Bare-metal stent deployment to the left common femoral artery and left external iliac artery in a contiguous manner Catheter placement in the right superficial femoral artery Right superficial femoral artery antegrade angiogram with unilateral runoff to the right foot Catheter placement to the right common iliac artery Right common iliac artery/femoral artery antegrade angiogram INDICATION Peripheral artery disease, [place] claudication class III, Extensive calcification throughout the left common and external iliac artery Informed consent was obtained prior to the procedure. COMPLICATIONS NONE Estimated Blood Loss: LESS THAN 10 ML TECHNIQUE 1% lidocaine used to anesthetize the left femoral groin. The left femoral artery was accessed via the Seldinger technique. Immediately there was difficulty traversing the wire through the iliofemoral system. An advantage wire was used to traverse the calcification stenotic and tortuous iliofemoral vessel. Retrograde angiography was performed which demonstrated extensive calcification. Therapeutic heparin was administered and the 5 [place] sheath was exchanged for a 6 [place] sheath. An 8 mm x 60 mm lithotripsy shockwave balloon was deployed administering 10 lithotripsy treatments. Following this an 8 mm x 57 mm bare-metal EV 3 stent was deployed at 12 mimi reducing the stenosis. An 8 mm x 20 mm balloon was then deployed at 16 mimi to post dilate. An additional 8 mm x 27 mm EV 3 stent was placed in the ostium of the left common iliac artery extending into the proximal portion of the first stent and then deployed at 12 and then 14 mimi. Excellent angiographic results were obtained with wide patency of the left iliofemoral system. There was a 40 mm increase in blood pressure from the beginning of the procedure following stenting of the vessels. A rim guide catheter was then advanced using the wire under fluoroscopic guidance into the right superficial femoral artery where unilateral angiography with runoff to the right foot was performed. The catheter was pulled back to the right common iliac artery where antegrade angiography was performed. At the end of procedure the apparatus was removed the patient was transferred to the postop putting in stable condition for sheath removal ANGIOGRAPHIC RESULTS Left common iliac artery is extensively calcified with 60 to 70% stenosis Left external iliac artery is extensively calcified with 60 to 70% stenosis Left internal iliac artery is patent with severe disease in the proximal segment Right common iliac artery is severely calcified creating 50 to 60% stenosis. The right internal iliac artery is patent right external iliac artery is extensively calcified creating a 50% stenosis. Right profunda femoris arteries widely patent. Right superficial femoral artery has a proximal eccentric extensively calcified 90% stenosis followed by long 80% stenosis. Within Aron's canal the SFA popliteal artery is severely calcified with severe diffuse 90% stenoses. The right popliteal artery is severely calcified and possibly subtotally occluded at the pregeniculate level. Distally the anterior tibialis artery appears to be patent as does the peroneal and the posterior tibialis artery however these arteries are small in caliber and provides slow flow distally. IMPRESSION Calcified left common iliac artery as described above with successful lithotripsy of the common and external iliac artery followed by tandem bare-metal balloon expandable stents delive
[2022-05-09 11:43] LABS: CATHL Activated Clotting Time 265 SEC (74-125)
--- NOTE | 2022-05-09 14:19 | HMH.PHAVTE ---
[facility] VTE Monitoring - Patient Demographics Admission date: 05/09/22 Report Date: 05/09/22 Time: 14:19 Allergies/Adverse Reactions: Patient Allergies No Known Allergies Allergy (Verified 05/07/22 08:55) Height: 1.73 m Weight: 61.689 kg - Prophylaxis Types of VTE Prophylaxis: TEDS Knee High Location of Applied Device: Bilateral Lower Extremeties (CHI HOSE ORDERED)
[2022-05-09 15:06] LABS: CATHL Activated Clotting Time 199 SEC (74-125)
--- NOTE | 2022-05-09 15:51 | SUR.PHASEII ---
NOTIFIED JESENIA ON 2ND FLOOR OF CHANGE IN PT MED LIST AND REMINDER TO GET LABS BEFORE HIS F/U APPOINTMENT
--- NOTE | 2022-05-09 16:38 | HMH.PHACLD ---
Cuong Kalia Niraj has received discharge medication counseling on the following medications: PATIENT IS CURRENTLY TAKING ASPIRIN 81 MG DAILY, ATORVASTATIN 20 MG HS, CLOPIDOGREL 75 MG DAILY, CARVEDILOL 25 MG BID, AND RAMIPRIL 10 MG DAILY.
== END ==
PROVIDERS: PCP Psychiatry & Neurology Sleep Medicine; Visit Provider Internal Medicine
DX: E11.9 Type 2 diabetes mellitus without complications (principal); I10 Essential (primary) hypertension; I25.10 Atherosclerotic heart disease of native coronary artery without angina pectoris; F17.210 Nicotine dependence, cigarettes, uncomplicated; R06.00 Dyspnea, unspecified; R94.31 Abnormal electrocardiogram [ECG] [EKG]; I70.213 Atherosclerosis of native arteries of extremities with intermittent claudication, bilateral legs; I65.23 Occlusion and stenosis of bilateral carotid arteries; I77.1 Stricture of artery; Z95.1 Presence of aortocoronary bypass graft; I35.0 Nonrheumatic aortic (valve) stenosis; Z79.4 Long term (current) use of insulin; Z79.899 Other long term (current) drug therapy
CPT/HCPCS: 36246; 75736; 85347; 99152; 99153; C1725; C1769; C1876; C1894; C9765; G0378; J1644; Q9966

== ENCOUNTER → 2022-06-09 09:20 | Outpatient (CLI) | payer MEDICARE, OTHER, SELFPAY ==
[2022-06-09 09:23] LABS: MANUAL DIFFERENTIAL MANUAL DIFFERENTIAL (MANUAL DIFF)
[2022-06-09 10:07] LABS: Basophils # 0.1 K/mm3 (0-0.2); Basophils % 1.2 % (0.1-2.0); Eosinophils # 0.2 K/mm3 (0.0-0.4); Eosinophils % 2.9 % (0.1-12.0); Hematocrit 31.6 % (42.0-52.0); Hemoglobin 8.9 g/dL (14.1-18.0); Lymphocytes % 28.4 % (10-50); Mean Corpuscular HGB Conc 28.2 g/dL (31.8-35.4); Mean Corpuscular Hemoglobin 20.5 pg (27.0-31.2); Mean Corpuscular Volume 72.8 fl (80-94); Mean Platelet Volume 8.6 fl (7.4-10.4); Monocytes # 0.4 K/mm3 (0.1-1.0); Monocytes % 4.9 % (1.7-9.3); Neutrophils # 4.4 K/mm3 (1.8-7.8); Neutrophils % 62.6 % (37.0-80.0); Platelet Count 185 K/mm3 (142-424); Red Blood Count 4.35 M/mm3 (4.60-6.20); Red Cell Distribution Width 18.9 % (11.5-17.5); White Blood Count 7.1 K/mm3 (4.8-10.8)
[2022-06-09 10:54] LABS: Blood Urea Nitrogen 24 mg/dl (9-20); Carbon Dioxide 25 mmol/L (22.0-30.0); Chloride 106 mmol/L (98-107); Estimated Glomerular Filt Rate 49 ml/min (>60); Sodium 139 mmol/L (136-145)
[2022-06-09 10:55] LABS: Calcium 8.8 mg/dl (8.4-10.2); GFR (African American) 60 ML/MIN (>60); Glucose 209 mg/dl (74-100)
[2022-06-09 13:03] LABS: Eosinophils % 1 % (0-3); Hypochromasia 3+; Lymphocytes % 28 % (10-50); Microcytosis 1+; Monocytes % 3 % (2-9); Neutrophils % 68 % (42-76); Ovalocytes 1+; Platelet Estimate Normal; Total Cells Counted 100
== END ==
PROVIDERS: PCP Family Medicine; Visit Provider Nurse Practitioner Family
DX: E11.9 Type 2 diabetes mellitus without complications (principal); E78.2 Mixed hyperlipidemia; I10 Essential (primary) hypertension; I25.10 Atherosclerotic heart disease of native coronary artery without angina pectoris; I35.0 Nonrheumatic aortic (valve) stenosis; I65.23 Occlusion and stenosis of bilateral carotid arteries; R06.00 Dyspnea, unspecified; R94.31 Abnormal electrocardiogram [ECG] [EKG]; Z95.1 Presence of aortocoronary bypass graft; Z98.890 Other specified postprocedural states; Z01.812 Encounter for preprocedural laboratory examination; U07.1 COVID-19
CPT/HCPCS: 36415; 80048; 85007; 85014; 85018; 85048; 85049; C9803; U0003; U0005

== ENCOUNTER → 2022-06-13 14:40 | Outpatient (CLI) | payer MEDICARE, OTHER, SELFPAY ==
[2022-06-13 21:07] LABS: Basophils # 0.1 K/mm3 (0-0.2); Eosinophils # 0.2 K/mm3 (0.0-0.4); Eosinophils % 3.2 % (0.1-12.0); Hemoglobin 8.1 g/dL (14.1-18.0); Lymphocytes # 2.1 K/mm3 (0.7-4.5); Lymphocytes % 34.8 % (10-50); Mean Corpuscular Volume 69.8 fl (80-94); Mean Platelet Volume 9.3 fl (7.4-10.4); Monocytes # 0.3 K/mm3 (0.1-1.0); Monocytes % 5.3 % (1.7-9.3); Neutrophils # 3.4 K/mm3 (1.8-7.8); Neutrophils % 55.7 % (37.0-80.0); Platelet Count 191 K/mm3 (142-424); Red Blood Count 3.84 M/mm3 (4.60-6.20); Red Cell Distribution Width 18.8 % (11.5-17.5); White Blood Count 6.1 K/mm3 (4.8-10.8)
[2022-06-13 21:09] LABS: Hematocrit 26.8 % (42.0-52.0)
[2022-06-13 22:27] LABS: Vitamin B12 173 pg/mL (239-931)
[2022-06-13 22:28] LABS: Folate 9.76 ng/mL
[2022-06-13 22:44] LABS: Iron 17 ug/dL (49-181)
== END ==
PROVIDERS: PCP Family Medicine; Visit Provider Family Medicine
DX: E11.9 Type 2 diabetes mellitus without complications (principal); I25.10 Atherosclerotic heart disease of native coronary artery without angina pectoris; D64.9 Anemia, unspecified; Z79.84 Long term (current) use of oral hypoglycemic drugs
CPT/HCPCS: 82607; 82746; 83540; 85025

== ENCOUNTER 2022-06-19 09:40 | Day surgery (SDC) | payer MEDICARE, OTHER, SELFPAY ==
[2022-06-19] VITALS (20 sets, daily range): BP systolic 132–174; BP diastolic 54–75; PULSE 57–68; RESP 12–20; TEMP 36.4–36.7; O2SAT 90–100; BMI 21.1
--- NOTE | 2022-06-19 07:07 | IR_ITS ---
APPROVED REPORT Patient Location: Outpatient Electrical Manufacturing Technician: LEONEL Ragsdale RT (R) PROCEDURES Left femoral arterial access Catheter placement in the right superficial femoral artery Right superficial femoral artery antegrade angiogram Intravascular lithotripsy to the right popliteal artery Drug-coated balloon angioplasty to the right popliteal artery and right superficial femoral artery Bare-metal stent deployment to the proximal right superficial femoral artery Catheter placement in the right PT trunk Right PT trunk antegrade angiogram Left retrograde femoral angiogram INDICATION Recalcitrant claudication, Peripheral artery disease, Severe/dense calcification through the right SFA and right popliteal artery Informed consent was obtained prior to the procedure. COMPLICATIONS None Estimated Blood Loss: Less than 10 mls TECHNIQUE 1% lidocaine used anesthetize the left groin the left femoral artery was accessed via the Salinger technique and a 6 [place] sheath was placed in the left femoral artery. A rim guide catheter was placed in the right common iliac artery followed by an advantage wire. The catheter was advanced to the right superficial femoral artery where angiography was performed. Following this therapeutic heparin was administered and the advantage wire was left in with the short sheath being removed and replaced with a long destination sheath which ended in the right superficial femoral artery. Therapeutic heparin was administered and the advantage wire was used to push through the occlusion through the SFA and popliteal artery. A 4 mm x 40 mm balloon was placed in the mid popliteal artery and deployed at 12 mimi predilating the stenosis. It was brought back into the popliteal artery where it was also dilated. Following this a 4 mm x 60 mm lithotripsy shockwave balloon was advanced to the popliteal artery and deployed a total of 10-30 pulsed intervals at 4 6 and 8 and even 10 mimi. Following this a 5 mm x 250 mm drug-coated balloon was then deployed for 3 minutes throughout the superficial femoral artery. An additional 4 mm x 130 mm drug-coated balloon was advanced to the popliteal artery and deployed at 10 mimi for 3 minutes. Following this a fairly large dissection was identified in the right superficial femoral artery therefore a 6 mm x 100 mm self-expanding stent was placed in the proximal right SFA. Following this a 6 mm x 80 mm balloon was deployed at 15 mimi post dilating the stent stenosis. An additional 6 mm x 20 mm balloon was then placed in the proximal portion and deployed at 16 mimi to further post dilate. A trailblazer catheter was used to exchange the 035 advantage wire prior to much of the previous intervention and definitely prior to the lithotripsy. After the trailblazer was advanced into the PT trunk antegrade angiography was performed through the trailblazer. With an 014 wire then being placed distally the lithotripsy and initial drug-coated balloon procedure was performed over the 014 wire. The wire was eventually exchanged for an 035 wire. After achieving excellent angiograph results the apparatus was removed the groin is reprepped closure change sheath was removed and hemostasis was achieved using Angio-Seal patient was transferred to the postop putting in stable condition. At the beginning of the procedure left retrograde angiography was performed through the sheath. This was not for the Angio-Seal device but rather for outlining the left iliofemoral artery. ANGIOGRAPHIC RESULTS Left common iliac artery is widely patent with widely patent stent which extends into the external iliac artery. The left common femoral artery is atheromatous but patent Right co
[2022-06-19 10:08] LABS: Basophils # 0.1 K/mm3 (0-0.2); Eosinophils # 0.2 K/mm3 (0.0-0.4); Eosinophils % 2.7 % (0.1-12.0); Hematocrit 33.4 % (42.0-52.0); Hemoglobin 9.4 g/dL (14.1-18.0); Lymphocytes # 2.1 K/mm3 (0.7-4.5); Lymphocytes % 24.4 % (10-50); Mean Corpuscular HGB Conc 28.1 g/dL (31.8-35.4); Mean Corpuscular Hemoglobin 21.1 pg (27.0-31.2); Mean Corpuscular Volume 75.1 fl (80-94); Mean Platelet Volume 7.7 fl (7.4-10.4); Monocytes # 0.5 K/mm3 (0.1-1.0); Monocytes % 5.9 % (1.7-9.3); Neutrophils # 5.7 K/mm3 (1.8-7.8); Neutrophils % 65.9 % (37.0-80.0); Platelet Count 218 K/mm3 (142-424); Red Blood Count 4.44 M/mm3 (4.60-6.20); Red Cell Distribution Width 18.8 % (11.5-17.5); White Blood Count 8.6 K/mm3 (4.8-10.8)
[2022-06-19 10:15] LABS: Anion Gap 11.6 mEq/L (5-15); Blood Urea Nitrogen 19 mg/dl (9-20); Calcium 8.8 mg/dl (8.4-10.2); Carbon Dioxide 26 mmol/L (22.0-30.0); Chloride 105 mmol/L (98-107); Creatinine Clearance Estimated 40 mL/min (50-200); Estimated Glomerular Filt Rate 49 ml/min (>60); GFR (African American) 60 ML/MIN (>60); Glucose 135 mg/dl (74-100); Potassium 4.6 mmoL/L (3.5-5.1); Sodium 138 mmol/L (136-145)
--- NOTE | 2022-06-19 14:53 | PC.NURSE ---
Pt arrived to the floor at this time
[2022-06-20 03:54] VITALS: BP 155/56; PULSE 63; RESP 16; TEMP 37; O2SAT 98
--- NOTE | 2022-06-20 04:36 | PC.NURSE ---
Pt is alert and oriented x4, pt has had no complaints this shift. Pt pedal pulses audible with doppler. Pt has been gradually sat up through the night. Pt remains on room air with no issues. Pt abdomen soft and nontender, bowel sounds active, lung sounds clear. Left groin cath site, dressing CDI. Pt has used the urinal independently through the night and has been resting. Call light in reach and working.
[2022-06-20 04:46] VITALS: BMI 20.7
[2022-06-20 06:33] LABS: Anion Gap 10.1 mEq/L (5-15); Blood Urea Nitrogen 16 mg/dl (9-20); Calcium 8.7 mg/dl (8.4-10.2); Carbon Dioxide 25 mmol/L (22.0-30.0); Chloride 107 mmol/L (98-107); Creatinine Clearance Estimated 46 mL/min (50-200); Estimated Glomerular Filt Rate 59 ml/min (>60); GFR (African American) 71 ML/MIN (>60); Glucose 60 mg/dl (74-100); Potassium 4.1 mmoL/L (3.5-5.1); Sodium 138 mmol/L (136-145)
[2022-06-20 07:21] LABS: Basophils # 0.1 K/mm3 (0-0.2); Basophils % 0.8 % (0.1-2.0); Eosinophils # 0.2 K/mm3 (0.0-0.4); Eosinophils % 2.4 % (0.1-12.0); Hematocrit 30.5 % (42.0-52.0); Hemoglobin 9.5 g/dL (14.1-18.0); Lymphocytes # 1.6 K/mm3 (0.7-4.5); Lymphocytes % 19.9 % (10-50); Mean Corpuscular HGB Conc 31.1 g/dL (31.8-35.4); Mean Corpuscular Hemoglobin 21.9 pg (27.0-31.2); Mean Corpuscular Volume 70.3 fl (80-94); Mean Platelet Volume 7.4 fl (7.4-10.4); Monocytes # 0.5 K/mm3 (0.1-1.0); Monocytes % 6.1 % (1.7-9.3); Neutrophils # 5.8 K/mm3 (1.8-7.8); Neutrophils % 70.8 % (37.0-80.0); Platelet Count 210 K/mm3 (142-424); Red Blood Count 4.34 M/mm3 (4.60-6.20); Red Cell Distribution Width 20.3 % (11.5-17.5); White Blood Count 8.2 K/mm3 (4.8-10.8)
[2022-06-20 08:00] VITALS: BP 162/54; PULSE 75; RESP 24; TEMP 37.2; O2SAT 98
--- NOTE | 2022-06-20 10:44 | P.CONPHA_ITS ---
PHA Outside Physical Damage Appraiser Discharge Med Platform Supervisor: Cuong Healy has received discharge medication counseling on the following medications: Patient is currently taking atorvastatin 20 mg hs, aspirin 81 mg daily, carvedilol 25 mg bid, clopidogrel 75 mg daily, and ramipril 10 mg daily.
== END 2022-06-20 11:00 | disposition home or self-care (01) ==
LOC: CATHLAB 09:41 → 2ND 14:26
PROVIDERS: PCP Family Medicine; Visit Provider Internal Medicine
DX: E11.9 Type 2 diabetes mellitus without complications (principal); E78.2 Mixed hyperlipidemia; I10 Essential (primary) hypertension; I25.10 Atherosclerotic heart disease of native coronary artery without angina pectoris; I35.0 Nonrheumatic aortic (valve) stenosis; I65.23 Occlusion and stenosis of bilateral carotid arteries; I70.211 Atherosclerosis of native arteries of extremities with intermittent claudication, right leg; R06.00 Dyspnea, unspecified; R94.31 Abnormal electrocardiogram [ECG] [EKG]; Z95.1 Presence of aortocoronary bypass graft
CPT/HCPCS: 36415; 37226; 80048; 85025; 99152; 99153; C1725; C1760; C1766; C1769; C1876; C1894; C2623; C9764; J1644; Q9966

== ENCOUNTER → 2022-06-25 09:39 | Outpatient (CLI) | payer MEDICARE, OTHER, SELFPAY ==
--- NOTE | 2022-06-25 09:48 | CT_ITS ---
FINAL REPORT CLINICAL HISTORY: anemia COMPARISON: CTA dated 04/29/2022 FINDINGS: CT OF THE ABDOMEN AND PELVIS WITH CONTRAST Axial CT images of the abdomen and pelvis were obtained after the administration of oral and iv contrast. Coronal reformatted images were also obtained and reviewed.This study was performed with techniques to keep radiation doses as low as reasonably achievable (ALARA). Individualized dose reduction techniques using automated exposure control or adjustment of mA and/or kV according to the patient's size were employed. Abdomen: There is mild scarring in the lung bases. The heart is normal in size. The liver has an unremarkable appearance, without evidence of mass or biliary ductal dilatation. The patient is status post cholecystectomy. The spleen is unremarkable. No adrenal mass is present. The pancreas has an unremarkable appearance. There is moderate to severe left renal atrophy. There are several bilateral renal cysts which are stable. There are diffuse vascular calcifications. There is a small caliber distal abdominal aorta again noted. There is no free fluid or adenopathy. Pelvis: The appendix normal. The prostate is diffusely enlarged. The urinary bladder is unremarkable. There is a right anterior abdominal wall hernia lateral to the rectus muscle which contains fat only. This appears stable. The hernia orifice measures 23 mm in transverse dimension. There is no adenopathy. There is no evidence of bowel obstruction. There are postoperative changes from fusion in the lower lumbar spine. IMPRESSION: Stable, atrophic left kidney. Stable, bilateral renal cysts. Stable, right abdominal wall hernia. Reviewed, Interpreted and Dictated by Kalia Zarate III, MD Transcribed by Juliet Walker Authenticated and [facility]
== END ==
PROVIDERS: PCP Family Medicine; Visit Provider Family Medicine
DX: D64.9 Anemia, unspecified (principal)
CPT/HCPCS: 74177; Q9967

== ENCOUNTER → 2022-09-02 11:02 | Outpatient (CLI) | payer MEDICARE, OTHER, SELFPAY ==
[2022-09-02 18:51] LABS: Blood Urea Nitrogen 26 mg/dl (9-20); Calcium 9.1 mg/dl (8.4-10.2); Carbon Dioxide 26 mmol/L (22.0-30.0); Estimated Glomerular Filt Rate 46 ml/min (>60); GFR (African American) 55 ML/MIN (>60); Glucose 240 mg/dl (74-100); Potassium 5.2 mmoL/L (3.5-5.1); Sodium 135 mmol/L (136-145)
[2022-09-02 19:45] LABS: Anion Gap 15.2 mEq/L (5-15); Chloride 99 mmol/L (98-107)
== END ==
PROVIDERS: PCP Family Medicine; Visit Provider Family Medicine
DX: I10 Essential (primary) hypertension (principal)
CPT/HCPCS: 80048

== ENCOUNTER → 2022-12-09 23:34 | Outpatient (CLI) | payer MEDICARE, OTHER, SELFPAY ==
[2022-12-09 19:00] LABS: Chloride 101 mmol/L (98-107); Sodium 134 mmol/L (136-145)
[2022-12-09 19:01] LABS: Potassium 5.6 mmoL/L (3.5-5.1)
[2022-12-09 19:03] LABS: Alanine Aminotransferase 14 U/L (12-78); Albumin Level 3.9 g/dl (3.5-5.0); Albumin/Globulin Ratio 1.6 (1.1-1.8); Alkaline Phosphatase 139 U/L (38-126); Anion Gap 10.6 mEq/L (5-15); Aspartate Amino Transferase 18 U/L (17-59); Bilirubin,Total 0.5 mg/dl (0.2-1.3); Blood Urea Nitrogen 31 mg/dl (9-20); Carbon Dioxide 28 mmol/L (22.0-30.0); Estimated Glomerular Filt Rate 46 ml/min (>60); GFR (African American) 55 ML/MIN (>60); Globulin 2.5 g/dL (1.3-3.2); Total Protein,Serum 6.4 g/dl (6.3-8.2)
[2022-12-09 19:04] LABS: Calcium 8.5 mg/dl (8.4-10.2); Glucose 352 mg/dl (74-100)
== END ==
PROVIDERS: PCP Family Medicine; Visit Provider Family Medicine
DX: I10 Essential (primary) hypertension (principal)
CPT/HCPCS: 80053

== ENCOUNTER → 2023-04-16 11:14 | Outpatient (CLI) | payer MEDICARE, OTHER, SELFPAY | PROVIDERS: PCP Nurse Practitioner; Visit Provider Nurse Practitioner | DX: L02.416 Cutaneous abscess of left lower limb (principal) | CPT/HCPCS: 87070; 87205 ==

== ENCOUNTER → 2023-06-16 09:45 | Outpatient (POV) | payer MEDICARE, OTHER, SELFPAY | PROVIDERS: Visit Provider Dermatology | DX: Z00.00 Encounter for general adult medical examination without abnormal findings (principal) ==